=== PATIENT | female | born 1980 | race Caucasian/White ===

== ENCOUNTER 2023-04-16 21:50 | Emergency (ER) | payer OTHER ==
[2023-04-16] MEDS ORDERED: Acetaminophen 500 MG TAB ONE (23:52)
[2023-04-16] MEDS ORDERED: Ketorolac Tromethamine 30 MG/ML VIAL ONE (23:52)
== END 2023-04-17 00:55 | disposition home or self-care (01) ==
LOC: CSHERS 21:50
DX: R51.9 Headache, unspecified (principal)
CPT/HCPCS: 96372; 99283; J1885